=== PATIENT | male | born 1955 | race Caucasian/White ===

== ENCOUNTER 2020-04-29 22:45 | Emergency (ER) | payer OTHER, SELFPAY ==
[2020-04-29 22:54] VITALS: BP 172/94; PULSE 60; RESP 24; TEMP 36.6; O2SAT 100; BMI 24.3
[2020-04-29] MEDS: ONDANSETRON 4 MG/2 ML INJ IV (23:13)
[2020-04-29 23:21] LABS: INR 1.1 (0.9-1.3)
[2020-04-29 23:24] LABS: PTT Partial Thromboplastin Tim 30 SECONDS (26.4-36.2)
[2020-04-29 23:25] LABS: Alanine Aminotransferase 25 IU/L (<50); Albumin 4.6 g/dL (3.5-5.0); Albumin Globulin Ratio 1.4 (1.0-2.8); Alkaline Phosphatase 50 U/L (38-126); Aspartate Aminotransferase 34 IU/L (17-59); Bilirubin Total 2.5 mg/dL (0.2-1.3); Blood Urea Nitrogen 16 mg/dL (9-20); Carbon Dioxide 19 mmol/L (22-32); Chloride 103 mmol/L (98-107); Estimated Glomerular Filt Rate > 60.0 mL/min (>60); Globulin 3.3 g/dL (1.7-4.1); Glucose 111 mg/dL (80-110); HEMOLYSIS 47 (0-50); Lipase 66 U/L (23-300); Potassium 3.6 mmol/L (3.4-5.1); Sodium 134 mmol/L (137-145); Total Protein 7.9 g/dL (6.3-8.2)
[2020-04-29 23:34] LABS: Add Manual Diff / Slide Review NO; Basophils Absolute Auto 100 /uL (0-100); Basophils Percent Auto 0.9 % (0-2); Eosinophils Absolute Auto 0 /uL (0-450); Eosinophils Percent Auto 0.5 % (2-4); Hematocrit 43.8 % (41-53); Hemoglobin 14.2 g/dL (13.5-17.5); Lymphocytes Absolute Auto 2200 /uL (1100-4500); Lymphocytes Percent Auto 23.1 % (25-40); Mean Corpuscular HGB Conc 32.5 % (30-36); Mean Corpuscular Hemoglobin 26.4 PG (26-34); Mean Corpuscular Volume 81.1 fL (80-100); Monocytes Absolute Auto 600 /uL (0-900); Monocytes Percent Auto 5.9 % (3-14); Neutrophils Absolute Auto 6800 /uL (1500-7000); Neutrophils Percent Auto 69.6 % (50-75); Platelet Count 276 X10^3/uL (150-400); Red Blood Cell Count 5.39 X10^6/uL (4.5-5.9); Red Cell Distribution Width 19.4 % (11.6-14.8); White Blood Cell Count 9.7 X10^3/uL (4.5-11.0)
[2020-04-29] MEDS: KETOROLAC 60 MG/2 ML VIAL 30 MG IV (23:38)
--- NOTE | 2020-04-29 23:50 | DI.CT.S_ITS ---
PROCEDURE: CT KIDNEY URETER BLADDER (KUB) INDICATIONS: right sided pain, eval for stone TECHNIQUE: Noncontrast 5 mm thick sections acquired from the diaphragms to the symphysis. 5 mm thick coronal and sagittal reformats were then performed. For radiation dose reduction, the following was used: automated exposure control, adjustment of mA and/or kV according to patient size. COMPARISON: None. FINDINGS: Image quality: Excellent. Lung bases: Lung bases are clear. Heart size is normal. Urinary system: Both kidneys are normal in size. No kidney stones. No hydronephrosis or perinephric fat stranding. Both ureters appear non-dilated throughout their expected courses. Bladder wall thickness is normal; no calcified bladder stones. Other solid organs: Liver is normal in size and contains scattered water density hypodensities consistent with several cysts.. Gallbladder appears normal where well seen . Pancreas is normal in contours. Spleen is normal in size. No adrenal nodules. Peritoneum and bowel: Unenhanced bowel loops demonstrate normal wall thickness and caliber. No free fluid or air. Nodes and vessels: No retroperitoneal or mesenteric adenopathy by size criteria. Aorta and inferior vena cava are normal in caliber. Abdominal wall: No ventral hernias. Pelvis: No free pelvic fluid. No inguinal hernias or adenopathy. Bones: No suspicious bony lesions. No vertebral body compression fractures. IMPRESSION: No urinary tract stone is seen, no hydronephrosis is found. Source of asymmetric right-sided flank pain is not identified. Dictated by: Samy Kumar M.D. on 04/30/2020 at 8:34 Approved by: Samy Kumar M.D. on 04/30/2020 at 8:38
--- NOTE | 2020-04-29 23:51 | ED_ITS ---
HPI - Extremity Problem General Chief complaint: Extremity Problem,Nontraumatic Stated complaint: right hip pain, nausea Time Seen by Provider: 04/29/20 23:45 Source: patient Mode of arrival: Ambulatory Limitations: no limitations History of Present Illness HPI Narrative: Patient is a 65-year-old male here for evaluation of right-sided flank/back pain. He states that it started earlier in the day when he was outs rachel mowing the lawn. Does not remember a specific incident when it started but he did feel like he came on fairly suddenly. Has been consistent. Did take a dose of Motrin any improvement. No history of kidney stones. States that he does get some relief by pushing on the area and his lower back and also pushing on his right lower quadrant in the front. No change to his bowel habits. No testicular pain. No blood in his urine. Pain does seem to be fairly constant but does have episodes where it is more intense than others. Related Data Previous Rx's Medication Instructions Recorded cyclobenzaprine 10 mg PO TID PRN #10 tab 04/30/20 hydrocodone-acetaminophen 1 tab PO Q6H PRN #7 tab 04/30/20 Allergies Allergy/AdvReac Type Severity Reaction Status Date / Time No Allergy Information Allergy Verified 04/29/20 22:54 Available Review of Systems Constitutional Constitutional: Denies headache(s) ENT Ears, Nose, Mouth, and Throat: Denies headache(s) Cardiovascular Cardiovascular: Denies chest pain and Denies dyspnea Respiratory Respiratory: Denies dyspnea Gastrointestinal Gastrointestinal: Denies abdominal pain, Denies change in bowel habits, Denies nausea and Denies vomiting Genitourinary Genitourinary: Denies dysuria and Denies testicular pain Genitourinary: Denies dysuria Musculoskeletal Musculoskeletal: Reports back pain and Denies myalgias Integumentary/Breasts Skin/Breast: Denies lesions and Denies rash Neurologic Neurologic: Denies behavioral changes and Denies headache(s) Psychiatric Psychiatric: Denies behavioral changes Hematologic/Lymphatic Hematologic/Lymphatic: Denies easy bleeding and Denies easy bruising Allergic/Immunologic Allergic/Immunologic: Denies urticaria Patient History Medical History Healthy adult Social History Smoking Status: Never smoker Smoking Status: Never smoker Substance Use Type: marijuana Exam Initial Vital Signs Initial Vital Signs: Vital Signs Temperature 97.9 F 04/29/20 22:54 Pulse Rate 60 04/29/20 22:54 Respiratory Rate 24 04/29/20 22:54 Blood Pressure 172/94 H 04/29/20 22:54 Pulse Oximetry 100 04/29/20 22:54 Const General: cooperative and No comfortable Limitations: mental status not altered HENMT Head: normal to inspection and normocephalic Resp Effort & Inspection: normal respiratory effort Auscultation: clear to auscultation bilaterally Cardio Rate: regular rate Rhythm: regular rhythm GI Inspection: non-distended Palpation: soft, No firm and No tender External: circumcised Penis: normal penis Meatus: meatus normal Scrotum: scrotum normal, cremasteric reflex present, no ecchymosis, not erythematous and no inguinal hernias Testes: normal, testicular lie normal, not enlarged and normal testicular lie Back/Spine/Pelvis Back: CVA tenderness right Thoracic/Lumbar Spine: paraspinal tenderness (Right) and No lumbar spinal tenderness Skin Lesions: no lesions Rashes: no rashes Extrem General: normal to inspection and capillary refill normal Other: Full range of motion of right hip Psych Appearance: grossly normal and well kempt Course Orders Ordered: ED Orders 04/29/20 23:00 Complete Blood Count AUTO DIFF Stat Comprehensive Metabolic Panel Stat Lipase Stat Partial Thromboplastin Time Stat Prothrombin Time INR Stat 04/29/20 23:50 CT kidney ureter bladder (KUB) Stat Discontinued Medications Hydrocodone Bitart/Acetaminophen (Hydrocodone/Acet 5/325 Prepack) 1 bottle MISC SEEINSTR ONE Stop: 04/30/20 01:16 Last Admin: 04/30/20 01:22 Dose: 1 bottle Documented by: PURVI Cyclobenzaprine HCl (Cyclobenzaprine 10 Mg Prepack) 1 bottle MISC SEEINSTR ONE Stop: 04/30/20 01:16 Last Admin: 04/30/20 01:22 Dose: 1 bottle Documented by: PURVI Hydromorphone HCl (Hydromorphone 1 Mg Inj) 1 mg IV NOW ONE Stop: 04/29/20 23:51 Last Admin: 04/30/20 00:01 Dose: 1 mg Documented by: PURVI Ketorolac Tromethamine (Ketorolac 60 Mg/2 Ml Vial) 30 mg IV NOW ONE Stop: 04/29/20 23:35 Last Admin: 04/29/20 23:38 Dose: 30 mg Documented by: PURVI Ondansetron HCl (Ondansetron 4 Mg/2 Ml Inj) 4 mg IV NOW ONE Stop: 04/29/20 23:11 Last Admin: 04/29/20 23:13 Dose: 4 mg Documented by: PURVI Vital Signs Vital signs: Vital Signs - 8 hr 04/29/20 22:54 04/30/20 00:05 04/30/20 00:30 Temperature 97.9 F Pulse Rate 60 71 60 Respiratory Rate 24 15 Blood Pressure 172/94 H 148/90 H 139/83 Pulse Oximetry 100 100 100 04/30/20 01:00 Temperature Pulse Rate 64 Respiratory Rate Blood Pressure 131/80 Pulse Oximetry 97 MDM - Extremity (Nontraumatic) Lab Data Attestation: I reviewed the patient's lab results. Result diagrams: 04/29/20 23:00 04/29/20 23:00 Labs: Lab Results 04/29/20 04/29/20 04/29/20 Range/Units 23:00 23:00 23:00 WBC 9.7 (4.5-11.0) X10^3/uL RBC 5.39 (4.5-5.9) X10^6/uL Hgb 14.2 (13.5-17.5) g/dL Hct 43.8 (41-53) % MCV 81.1 (80-100) fL MCH 26.4 (26-34) PG MCHC 32.5 (30-36) % RDW 19.4 H (11.6-14.8) % Plt Count 276 (150-400) X10^3/uL Neut % (Auto) 69.6 (50-75) % Lymph % (Auto) 23.1 L (25-40) % Union % (Auto) 5.9 (3-14) % Eos % (Auto) 0.5 L (2-4) % Baso % (Auto) 0.9 (0-2) % Neut # (Auto) 6800 (9620-8415) /uL Lymph # (Auto) 2200 (9019-8061) /uL Union # (Auto) 600 (0-900) /uL Eos # (Auto) 0 (0-450) /uL Baso # (Auto) 100 (0-100) /uL PT 13.0 H (10.1-12.7) SECONDS INR 1.1 (0.9-1.3) APTT 30 (26.4-36.2) SECONDS Sodium 134 L (137-145) mmol/L Potassium 3.6 (3.4-5.1) mmol/L Chloride 103 (98-107) mmol/L Carbon Dioxide 19 L (22-32) mmol/L BUN 16 (9-20) mg/dL Creatinine 1.00 (0.66-1.25) mg/dL Estimated GFR > 60.0 (>60) mL/min BUN/Creatinine Ratio 16.0 (6-22) Glucose 111 H (80-110) mg/dL Calcium 10.0 (8.4-10.2) mg/dL Total Bilirubin 2.5 H (0.2-1.3) mg/dL AST 34 (17-59) IU/L ALT 25 (<50) IU/L Alkaline Phosphatase 50 (38-126) U/L Total Protein 7.9 (6.3-8.2) g/dL Albumin 4.6 (3.5-5.0) g/dL Globulin 3.3 (1.7-4.1) g/dL Albumin/Globulin Ratio 1.4 (1.0-2.8) Lipase 66 (23-300) U/L Urine Dip Bedside Urine Glucose Negative Bedside Urine Bilirubin - Negative Bedside Urine Ketone +++ 80 Urine Specific [place] 1.015 Bedside Urine Occult Blood +/- Bedside Urine pH 7.5 Bedside Urine Protein +/- 15 Bedside Urine Urobilinogen - Negative Bedside Urine Nitrite - Negative Bedside Urine Leukocytes - Negative Esterase Imaging Data CT scan - abdomen/pelvis: Radiologist's Impression: No acute disease. No hydronephrosis or o bstructing stone No evidence of bowel obstruction or free air. No evidence of appendicitis. MDM Narrative Medical decision making narrative: Upon arrival patient initially stated that he thought was his right hip where he was having the discomfort however he has full range of motion of his right hip without any reproduction or changing of the pain that brought him in. He has never had a kidney stone in the past and a portion of his clinical presentation is somewhat concerning for this. His kidney function is unremarkable. CT scan of his abdomen shows no signs of his stone and also shows no other intra-abdominal acute pathology. Does seem to be tender in his right lumbar region over the SI joint. There is no skin changes over the area. It did occur while he was performing physical activity so it very well could be musculoskeletal etiology. When I re-evaluated the patient after the CT scan he then mentioned that he was having some right-sided testicular pain. His exam was unremarkable and I have low suspicion for testicular torsion based on this exam. He has also never had any prostate issues. He is afebrile. Does not have a leukocytosis. Will treat as musculoskeletal given his clinical presentation. He was given return precautions follow-up instructions. Both he and his who is at bedside expressed understanding and agreement. Discharge Plan Departure Patient Disposition: Home Clinical Impression: Lower back pain Qualifiers: Chronicity: acute Back pain laterality: right Sciatica presence: without sciati ca Qualified Code(s): M54.5 - Low back pain Instructions: Low Back Pain (Alternative Therapy), DI for Low Back Pain, Activity May Be Better Than Rest for Low Back Pain Recovery Activity Restrictions/Additional Instructions: Recommend that you stay as active as possible. Take the medications as directed. Contact your primary provider for a follow-up. Return to the emergency department for any new or worsening symptoms. You can take [id number] ibuprofen. You can take 600-800 mg 3 times a day with food. You can also take Tylenol in addition to ibuprofen. Prescriptions: New hydrocodone-acetaminophen 5-325 mg tablet 1 tab PO Q6H PRN (Reason: pain) Qty: 7 RF: 0 cyclobenzaprine 10 mg tablet 10 mg PO TID PRN (Reason: muscle spasm) Qty: 10 RF: 0
[2020-04-30] MEDS: HYDROMORPHONE 1 MG INJ IV (00:01)
[2020-04-30 00:05] VITALS: BP 148/90; PULSE 71; PULSE 73; RESP 15; O2SAT 100
[2020-04-30 00:30] VITALS: BP 139/83; PULSE 60; O2SAT 100
[2020-04-30 01:00] VITALS: BP 131/80; PULSE 64; O2SAT 97
[2020-04-30] MEDS: HYDROCODONE/ACET 5/325 PREPACK 1 BOTTLE MISC (01:22)
[2020-04-30] MEDS: CYCLOBENZAPRINE 10 MG PREPACK 1 BOTTLE MISC (01:22)
== END 2020-04-30 01:50 | disposition home or self-care (01) ==
PROVIDERS: Emergency Provider Emergency Medicine
DX: M54.5 Low back pain (principal); M25.551 Pain in right hip
CPT/HCPCS: 36415; 74176; 80053; 81003; 83690; 85025; 85610; 85730; 96374; 96375; 99281; 99284; J1170; J1885; J2405

== ENCOUNTER 2021-04-11 11:25 | Emergency (ER) | payer OTHER, SELFPAY ==
[2021-04-11 11:25] VITALS: BP 129/92; PULSE 86; RESP 16; TEMP 36.6; O2SAT 97; BMI 22.9
--- NOTE | 2021-04-11 12:30 | ED.EAR ---
HPI - Ear Problem <Minerva Joyner, [facility] - Last Filed: 04/11/21 17:27> General Chief complaint: Ear Stated complaint: ear infection/bleeding, weak, painful,can't sleep Time Seen by Provider: 04/11/21 12:16 Source: patient and family Mode of arrival: Ambulatory History of Present Illness HPI Narrative: 66-year-old male presents to the emergency department today for continued left ear pain, tinnitus, lightheadedness, and drainage from his left ear. Patient had been seen 2 times for this once at the Urgent Care, [facility] by his primary care provider, and his most recent diagnosis was a ruptured TM with otitis media of the left ear. Patient denies any fever, nausea, vomiting, chest pain, shortness of breath, swollen lymph nodes, pain behind his ear, pain of the ear pinna, rash, vision changes, hearing changes or any other symptom. He reports that previously he did have muffled hearing but it has been better for at least 3 days from that standpoint. Patient reports that he does not feel that he is getting any better. He has finished a course of azithromycin, most recently with the rupture TM diagnosis he was prescribed doxycycline and is in the middle of that course, he was also prescribed hydroxyzine for tinnitus, and diclofenac for pain. He reports that this is not helpful for him. Discharge from ear: yes - bloody Related Data Previous Rx's Medication Instructions Recorded cyclobenzaprine 10 mg tablet 10 mg PO TID PRN #10 tab 04/30/20 hydrocodone 5 mg-acetaminophen 325 1 tab PO Q6H PRN #7 tab 04/30/20 mg tablet ciprofloxacin HCl 0.2 % ear drops 0.25 ml EAR-LEFT Q12H 7 Days #14 ea 04/11/21 in a dropperette ciprofloxacin HCl 0.2 % ear drops 3 drp EAR-LEFT BID 7 Days #14 ea 04/11/21 in a dropperette fluticasone propionate 50 1 spray INTRANASAL BID #16 g 04/11/21 mcg/actuation nasal spray,suspension (Flonase Allergy Relief) fluticasone propionate 50 1 spray INTRANASAL BID #16 g 04/11/21 mcg/actuation nasal spray,suspension (Flonase Allergy Relief) hydrocodone 5 mg-acetaminophen 325 1 tab PO BID PRN #10 tab 04/11/21 mg tablet hydrocodone 5 mg-acetaminophen 325 1 tab PO Q8H PRN #10 tab 04/11/21 mg tablet Allergies Allergy/AdvReac Type Severity Reaction Status Date / Time No Allergy Information Allergy Verified 04/29/20 22:54 Available Review of Systems <AILEEN Solis - Last Filed: 04/11/21 17:27> Review of Systems Narrative: General: denies fever, chills Head/Neck: denies headache, neck pain, endorses tinnitus, denies hearing loss, reports deep ear pain, no pain behind his ear. Eyes: denies visual changes, eye pain Cardio: denies chest pain, palpitations Respiratory: denies shortness of breath, cough GI: denies abdominal pain, nausea, vomiting, or diarrhea : denies dysuria, hematuria MSK: denies joint pain, muscle weakness Skin: denies rash, itching Neuro: denies numbness, tingling Patient History <AILEEN Solis - Last Filed: 04/11/21 17:27> Medical History Healthy adult Social History Smoking Status: Never smoker Smoking Status: Never smoker Substance Use Type: marijuana Exam <AILEEN Solis - Last Filed: 04/11/21 17:27> Narrative Exam Narrative: Independently reviewed vitals signs and nursing notes. General: Awake, alert, nontoxic, no cardiorespiratory distress Head/Neck: Atraumatic, neck full range of motion Eyes: EOMI, conjunctiva normal Nose: nares patent, no rhinorrhea Ears: Right ear canal patent, pearly stanton TM with fluid behind and positive light reflex, no cerumen impaction, left ear canal with some bloody discharge coming from what appears to be a ruptured TM, there is however fluid behind the TM, it is clear, his canal is slightly injected at the TM but exam was painless, no evidence of otitis externa, or mastoiditis, patient does not have any pain to mastoid when palpated. No changes in hearing per my bedside exam. Mouth/Throat: moist mucus membranes, posterior pharynx normal, no oral lesions Cardio: Regular rate and rhythm, no peripheral edema Respiratory: respirations unlabored without wheezing, stridor, or rales. No retractions. GI: Abdomen soft, nontender MSK: Moves all extremities, neurovascularly intact Skin: Normal capillary refill, no rash Neuro: Normal speech and cognition, normal gait Initial Vital Signs Initial Vital Signs: Vital Signs Temperature 97.8 F 04/11/21 11:25 Pulse Rate 86 04/11/21 11:25 Respiratory Rate 16 04/11/21 11:25 Blood Pressure 129/92 H 04/11/21 11:25 Pulse Oximetry 97 04/11/21 11:25 <Joycelyn Melgar DO - Last Filed: 04/11/21 18:43> Initial Vital Signs Initial Vital Signs: Vital Signs Temperature 97.8 F 04/11/21 11:25 Pulse Rate 86 04/11/21 11:25 Respiratory Rate 16 04/11/21 11:25 Blood Pressure 129/92 H 04/11/21 11:25 Pulse Oximetry 97 04/11/21 11:25 Course <AILEEN Solis - Last Filed: 04/11/21 17:27> Orders Ordered: Discontinued Medications Oxycodone/Acetaminophen (Oxycodone/Acetaminophen 5/325 Tablet) 1 tab PO NOW ONE Stop: 04/11/21 12:31 Last Admin: 04/11/21 12:39 Dose: 1 tab Documented by: KAYLI Vital Signs Vital signs: Vital Signs - 8 hr 04/11/21 11:25 Temperature 97.8 F Pulse Rate 86 Respiratory Rate 16 Blood Pressure 129/92 H Pulse Oximetry 97 <Joycelyn Melgar DO - Last Filed: 04/11/21 18:43> Orders Ordered: Discontinued Medications Oxycodone/Acetaminophen (Oxycodone/Acetaminophen 5/325 Tablet) 1 tab PO NOW ONE Stop: 04/11/21 12:31 Last Admin: 04/11/21 12:39 Dose: 1 tab Documented by: KAYLI Vital Signs Vital signs: Vital Signs - 8 hr 04/11/21 11:25 Temperature 97.8 F Pulse Rate 86 Respiratory Rate 16 Blood Pressure 129/92 H Pulse Oximetry 97 Medical Decision Making <AILEEN Solis - Last Filed: 04/11/21 17:27> MDM Narrative Medical decision making narrative: 66-year-old male presents to the emergency department today for continued left ear pain, tinnitus, lightheadedness, and drainage from his left ear. This appears to most likely be improving otitis media with a ruptured TM on the left with serous effusion behind TM. Dr. Melgar was available during patient's exam and agree with my diagnosis. Recommend patient to continue his prescriptions as prescribed, and add on ciprofloxacin otic drops to his left ear x1 week, as well as Flonase to help with the serous otitis media. Recommend following up with Dr. Welch [facility] Monday and patient understands these instructions. Differential includes AOM, otitis externa, Zully Fonseca syndrome, bullous myringitis, labyrinthitis, cholesteatoma, mastoiditis, tympanic sclerosis. Patient is appropriate and amenable to discharge home. Vital signs are stable on repeat examination is unremarkable. Patient has been informed of results. Patient has been given strict return to ER precautions for any new or worsening symptoms. Patient understands to follow up closely with outpatient providers as instructed. Patient understands plan and agrees to discharge home. All questions and concerns answered at this time. Discharge Plan Departure Patient Disposition: Home Clinical Impression: Rupture of left tympanic membrane Instructions: Ruptured Eardrum Activity Restrictions/Additional Instructions: *You have been diagnosed with a ruptured tympanic membrane in your left ear, left ear pain. Please follow-up with ENT as referred in your paperwork. Hopefully they can see you this week hand you start to develop some relief with the pain medications that you have. Please continue all of these medications finish your course of antibiotics, take hydrocodone for breakthrough pain when you need to sleep, diclofenac can be helpful, hydroxyzine and Flonase are for the dizziness, balance, and ringing problems that you are feeling in your left ear. Your prescriptions were called into the [facility] in [place], I am very sorry I missed heard some how that this is where he wants to them, a promise this will not happen again. *What to do: *Please continue to take your regular medications as directed. [ x] New medication prescriptions sent to your pharmacy: [[facility] ] [ ] New medication written as a paper prescription [ ] No new medications given *Please follow up with your primary care provider in 2-3 days, call for an appointment. Let them know you were seen in the Emergency Department and that we ask that you be seen in follow up. We will electronically transmit a record of today's note if your PCP is in our system *If you do not have a primary care provider please contact the [facility] Resource line at [phone]. They will ask some questions about your medical history and help get you set up with a doctor in the community. *Return to Emergency Department if you should have any new, worsening or concerning symptoms, such as [fever greater than 101F, chills, worsening pain, persistent vomiting or other bothersome symptoms] Prescriptions: New ciprofloxacin HCl 0.2 % dropperette 3 drp EAR-LEFT BID 7 Days Qty: 14 RF: 0 fluticasone propionate [Flonase Allergy Relief] 50 mcg/actuation spray,suspension 1 spray intranasal BID Qty: 16 RF: 0 hydrocodone-acetaminophen 5-325 mg tablet 1 tab PO BID PRN (Reason: pain) Qty: 10 RF: 0 ciprofloxacin HCl 0.2 % dropperette 0.25 ml EAR-LEFT Q12H 7 Days Qty: 14 RF: 0 hydrocodone-acetaminophen 5-325 mg tablet 1 tab PO Q8H PRN (Reason: pain) Qty: 10 RF: 0 fluticasone propionate [Flonase Allergy Relief] 50 mcg/actuation spray,suspension 1 spray intranasal BID Qty: 16 RF: 0 No Action hydrocodone-acetaminophen 5-325 mg tablet 1 tab PO Q6H PRN (Reason: pain) Qty: 7 RF: 0 cyclobenzaprine 10 mg tablet 10 mg PO TID PRN (Reason: muscle spasm) Qty: 10 RF: 0 Referrals: Jaime Welch MD [Physician] - As soon as possible Johann Adam DO [Primary Care Provider] - <Joycelyn Melgar DO - Last Filed: 04/11/21 18:43> Cosign ED Attending Cosignature Attestation: I was immediately available in the department for consultation. Documentation has been reviewed. Case was discussed and patient was evaluated by myself. Patient's physical exam his has possible tympanic membrane rupture. There is to be behind the TM I cannot see a clear whole but there is inter regular line from the 9 o'clock to 6 o'clock position with whitish discoloration of the TM. Patient does not have any active bleeding or drainage. Discussed with patient and family there may be a rupture, these are typically seen by ENT for either repair or treatment. But with the changes would also be appropriate to cover with otic antibiotic drops and follow-up if he continues to have pain has typically pain will resolve after rupture. Patient was given referral. He has not been taking any of the oral pain medications he was prescribed and he was encouraged to take these or take an alternative option. Also Flonase was recommended as it does appear that the TM has fluid behind it.
[2021-04-11] MEDS: OXYCODONE/ACETAMINOPHEN 5/325 TABLET 1 TAB PO (12:39)
== END 2021-04-11 13:20 | disposition home or self-care (01) ==
PROVIDERS: Emergency Provider Nurse Practitioner Critical Care Medicine; PCP Family Medicine
DX: H66.92 Otitis media, unspecified, left ear (principal); H72.92 Unspecified perforation of tympanic membrane, left ear
CPT/HCPCS: 99283